=== PATIENT | female | born 1985 | race Caucasian/White ===

== ENCOUNTER 2017-12-09 18:45 | Emergency (ER) | payer MEDICAID ==
[2017-12-09] MEDS: KETOROLAC 60 MG INJ IM (20:46)
== END 2017-12-09 21:30 | disposition home or self-care (01) ==
LOC: FTE 18:45
DX: S99.912A Unspecified injury of left ankle, initial encounter (principal); F17.210 Nicotine dependence, cigarettes, uncomplicated; W01.0XXA Fall on same level from slipping, tripping and stumbling without subsequent striking against object, initial encounter; Y92.9 Unspecified place or not applicable
CPT/HCPCS: 73610; 81025; 96372; 99284-25